=== PATIENT | male | born 1940 | race African-American/Black ===

== ENCOUNTER → 2021-01-05 | Outpatient (CLI) | payer OTHER ==
[~2021-01-05] MED LIST: ASPIRIN EC81 M1 PO; AVAPRO 150 MG150 M1 PO; BACTROBAN CREAM30 G1; CEFDINIR300 MG PO; CHLORDIAZEPOXIDE5 M2; DIOVAN160 MG PO; FAMCYCLOVIR 50500 M1 PO; FLOMAX PO; HYOMAX SL PO; KEFLEX500 MG PO; NAPROSYN500 MG PO; NEURONTIN 300300 M1 PO; NORCO 5-325 TA1 EACH PO; PERCOCET 5-3251 EACH PO; PRILOSEC40 MG PO; PROTONIX40 M2 PO; TAMSULOSIN HCL0.4 MG PO; ZOFRAN ODT4 MG PO
== END ==
LOC: SJCVC 09:40
PROVIDERS: ATTEND Internal Medicine
DX: Z13.220 Encounter for screening for lipoid disorders (principal); I10 Essential (primary) hypertension; E78.00 Pure hypercholesterolemia, unspecified; R06.02 Shortness of breath; E11.9 Type 2 diabetes mellitus without complications; K21.9 Gastro-esophageal reflux disease without esophagitis; E78.5 Hyperlipidemia, unspecified; I35.0 Nonrheumatic aortic (valve) stenosis; Z79.899 Other long term (current) drug therapy; Z79.82 Long term (current) use of aspirin

== ENCOUNTER → 2021-01-14 | Outpatient (CLI) | payer OTHER | LOC: SJCVCIMAG 07:33 | PROVIDERS: ATTEND Internal Medicine | DX: R00.0 Tachycardia, unspecified (principal); I49.3 Ventricular premature depolarization; E11.9 Type 2 diabetes mellitus without complications; K21.9 Gastro-esophageal reflux disease without esophagitis; E78.5 Hyperlipidemia, unspecified; I35.0 Nonrheumatic aortic (valve) stenosis; I10 Essential (primary) hypertension; E78.00 Pure hypercholesterolemia, unspecified; Z79.82 Long term (current) use of aspirin; Z79.899 Other long term (current) drug therapy ==

== ENCOUNTER → 2021-07-28 | Outpatient (CLI) | payer OTHER ==
[~2021-07-28] MED LIST changes: +AMLODIPINE BESY10 MG PO; +ATORVASTATIN CA10 MG PO; +FINASTERIDE5 MG PO; +GLIPIZIDE ER2.5 MG PO; +IRBESARTAN300 MG PO; +MECLIZINE HCL25 MG PO; +MULTI VITAMIN1 EACH PO; +PROAIR HFA8.5 GM INH; +TRAZODONE HCL50 MG PO
== END ==
LOC: LAB 08:58
PROVIDERS: ATTEND Student in an Organized Health Care Education/Training Program
DX: Z01.812 Encounter for preprocedural laboratory examination (principal); Z20.822 Contact with and (suspected) exposure to COVID-19

== ENCOUNTER 2021-08-01 06:04 | Day surgery (SDC) | payer OTHER ==
[~2021-08-01] VITALS: Ht 177.8 cm; Wt 83.9 kg
[2021-08-01 07:02] VITALS: BP 149/74
--- NOTE | 2021-08-01 07:32 | EKG ---
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
[2021-08-01 08:53] VITALS: BP 149/74
--- NOTE | 2021-08-01 10:03 | O ---
[facility] [place] [address] OPERATIVE REPORT Name: PERLITA NEWTON Room #: 150-1 [facility] M.R.#: [id number] Admission: 08/01/21 Attend Phys: Krzysztof Fraser MD Discharge: Date of : 42 Report #: [id number] THIS REPORT FOR: cc: Maximo Garsia MD, Steven A. MD Clymer,Krzysztof Beaver MD ~ DATE OF SERVICE: 08/01/2021 PREOPERATIVE DIAGNOSES: Right knee medial meniscus tear and lateral meniscus tear with mild generalized degenerative chondromalacia. POSTOPERATIVE DIAGNOSES: Right knee medial meniscus tear and lateral meniscus tear with mild generalized degenerative chondromalacia. PROCEDURES: Right knee arthroscopy with partial medial meniscectomy and partial lateral meniscectomy and limited chondroplasty and removal of loose bodies. SURGEON: Krzysztof Fraser MD INDICATIONS: This 81-year-old gentleman, appears quite fit and healthy and seems much younger than his stated age. He remains active and fully independent. He has had some bilateral knee problems and underwent left knee arthroscopy in the past with excellent result. He has similar problems on the right side. MRI study reveals evidence of some medial and lateral meniscus damage as well as mild chondromalacia. Given his advanced age, we have discussed going ahead with total knee replacement, but the patient and feel his symptoms are mild and would prefer to avoid knee replacement. They noted he had an excellent result with arthroscopic debridement on the opposite side several years ago. Given this, they have elected to go ahead with right knee arthroscopy. DESCRIPTION OF PROCEDURE: The patient was taken to the operating room where he was placed under brief general anesthetic. The right knee and leg were meticulously prepped and draped. A thigh tourniquet was applied and inflated to 300 mmHg. A lateral suprapatellar inflow cannula was placed, the arthroscope and shaver were introduced through parapatellar tendon approaches. The various compartments were sequentially visualized and documented with arthroscopic photography. There was some generalized synovial hypertrophy and some loose debris in the joint as well as two moderate-sized loose bodies, which were morcellized and removed. The knee was aggressively irrigated and the synovial hypertrophy was debrided, allowing good visualization. The medial compartment revealed mild chondromalacia on the medial femoral condyle and the medial tibial plateau. There is moderate irregular degenerative tearing in the mid and posterior aspect of the medial meniscus, which was debrided with a small shaver. The [address] [address] OPERATIVE REPORT Name: PERLITA NEWTON Room #: 150-1 [facility] M.R.#: [id number] Admission: 08/01/21 Attend Phys: Krzysztof Fraser MD Discharge: Date of : 42 Report #: [id number] to two-thirds of the meniscus are still in good shape and functional. No other problems in the medial compartment were identified. The lateral compartment reveals more severe chondromalacia involving the lateral tibial plateau and minor chondromalacia on the lateral femoral condyle. There is somewhat more significant generalized degenerative tearing of the lateral meniscus involving about the inner one-half of the meniscus from the anterolateral aspect back to the posterior horn. This area of meniscus was debrided back to a smooth, stable outer margin. The areas of chondromalacia were also very gently debrided removing only the loose irregular cartilage leaving as much good cartilage in place as possible. The intercondylar notch reveals mild synovial hypertrophy and mild bony spurring. The cruciate ligaments appeared to be intact and stable. Only limited debridement here was necessary. The patellofemoral articulation reveals mild grade I or grade II chondromalacia on the patella and a few areas of deeper damage on the trochlea of the distal femur. In general, however, the patella seems to be in good shape and is tracking nicely and appears stable. Limited debridement here was performed. The suprapatellar pouch revealed some synovial hypertrophy and a few small loose bodies, which were debrided. The entire knee was copiously irrigated. All excess fluid was evacuated of the knee. The knee was injected with 80 mg of Depo-Medrol and 20 mL of 0.5% Marcaine with epinephrine. The puncture sites were closed with interrupted nylon suture. A sterile dressing was applied. The patient was awakened and returned to recovery room in good condition. <ELECTRONICALLY SIGNED> By: Krzysztof Fraser MD 08/01/21 1003 [id number] Krzysztof Fraser MD /nt
== END 2021-08-01 09:50 | disposition home or self-care (01) ==
LOC: OR → TBA 06:04 → OR 06:04
PROVIDERS: ATTEND Orthopaedic Surgery
DX: M23.251 Derangement of posterior horn of lateral meniscus due to old tear or injury, right knee (principal); M23.231 Derangement of other medial meniscus due to old tear or injury, right knee; M94.261 Chondromalacia, right knee; M23.41 Loose body in knee, right knee; I10 Essential (primary) hypertension; E11.9 Type 2 diabetes mellitus without complications; E78.5 Hyperlipidemia, unspecified; K21.9 Gastro-esophageal reflux disease without esophagitis; Z98.890 Other specified postprocedural states; Z79.899 Other long term (current) drug therapy; Z90.49 Acquired absence of other specified parts of digestive tract; Z87.442 Personal history of urinary calculi; Z88.8 Allergy status to other drugs, medicaments and biological substances
CPT/HCPCS: 50010; 50101; 50405; 56526; 57103; 57180; 57255; 58577; 58589; 62110; 62900; 70005

== ENCOUNTER 2021-08-01 20:41 | Emergency (ER) | payer OTHER ==
[~2021-08-01] VITALS: Ht 177.8 cm; Wt 83.9 kg
[2021-08-01 20:51] VITALS: BP 160/79
== END 2021-08-01 22:39 | disposition home or self-care (01) ==
LOC: ER 20:41
DX: G89.18 Other acute postprocedural pain (principal); M25.561 Pain in right knee; I10 Essential (primary) hypertension; E78.5 Hyperlipidemia, unspecified; K21.9 Gastro-esophageal reflux disease without esophagitis; E11.9 Type 2 diabetes mellitus without complications; Z90.49 Acquired absence of other specified parts of digestive tract; Z79.82 Long term (current) use of aspirin; Z79.899 Other long term (current) drug therapy